=== PATIENT | male | born 1945 | race Caucasian/White ===

== ENCOUNTER 2019-01-23 16:59 | Emergency (ER) | payer MEDICARE, BC ==
[2019-01-23 17:22] VITALS: BP 116/97
--- NOTE | 2019-01-23 17:57 | ED ---
Skin Complaint - HPI Summary HPI Summary: pt was chopping wood earlier this am and when he checked himself this afternoon. he found a tick to his left thigh. he removed it. he states that there is already redness and he wanted to be checked out. he has a family member that has lyme disease and it has ruined his life. - History of Current Complaint Chief Complaint: UCSkin Stated Complaint: TICK BITE Hx Obtained From: Patient Onset/Duration: Started Hours Ago Onset Severity: Mild Pain Intensity: 0 - Allergy/Home Medications Allergies/Adverse Reactions: Allergies Allergy/AdvReac Type Severity Reaction Status Date / Time No Known Allergies Allergy Verified 01/23/19 17:22 Home Medications: Home Medications Alirocumab [Praluent Pen] 75 mg SQ WEEKLY 01/23/19 [History Confirmed 01/23/19] Aspirin 81 mg CHEW TAB* [Aspirin Low Dose TAB*] 81 mg PO DAILY 01/23/19 [ History Confirmed 01/23/19] Clopidogrel TAB* [Plavix TAB*] 75 mg PO DAILY 01/23/19 [History Confirmed ] Glucosamine Sulfate Dipot Chlr [Glucosamine Sulfate] 1,000 mg PO DAILY 01/23/19 [History Confirmed 01/23/19] Irbesartan/Hydrochlorothiazide [Irbesartan-Hctz 150-12.5 mg Tb] 1 each PO DAILY 01/23/19 [History Confirmed 01/23/19] Multivitamin [Multiple Vitamins] 1 each PO DAILY 01/23/19 [History Confirmed 02/05] Omeprazole 20 mg PO DAILY 01/23/19 [History Confirmed 01/23/19] Sertraline* [Zoloft*] 50 mg PO DAILY 01/23/19 [History Confirmed 01/23/19] PMH/Surg Hx/FS Hx/Imm Hx Previously Healthy: Yes Cardiovascular History: Reports: Hx Hypertension - Cancer History Cancer Type, Location and Year: prostate cancer - Surgical History Surgery Procedure, Year, and Place: prostate surgery. Ulna nerve repair. 3 stents Infectious Disease History: No Infectious Disease History: Denies: Traveled Outside the [place] in Last 30 Days - Social History Alcohol Use: Daily Substance Use Type: Reports: None Smoking Status (MU): Former Smoker Review of Systems Constitutional: Negative Eyes: Negative ENT: Negative Cardiovascular: Negative Respiratory: Negative Gastrointestinal: Negative Genitourinary: Negative Musculoskeletal: Negative Positive: Rash - left thigh Neurological: Negative Psychological: Normal All Other Systems Reviewed And Are Negative: No Physical Exam Triage Information Reviewed: Yes Vital Signs On Initial Exam: Initial Vitals Temp Pulse Resp BP Pulse Ox 99.1 F 78 16 116/97 98 01/23/19 17:17 01/23/19 17:17 01/23/19 17:17 01/23/19 17:17 01/23/19 17:17 Vital Signs Reviewed: Yes Appearance: Positive: Well-Appearing, No Pain Distress, Well-Nourished Skin: Positive: Warm, Other - redness to left middle thigh approx 4x3 cm Head/Face: Positive: Normal Head/Face Inspection Eyes: Positive: Normal, EOMI, [place] ENT: Positive: Hearing grossly normal Neck: Positive: Supple, Nontender Respiratory/Lung Sounds: Positive: Clear to Auscultation, Breath Sounds Present Cardiovascular: Positive: Normal, RRR Abdomen Description: Positive: Nontender, Soft Bowel Sounds: Positive: Present Musculoskeletal: Positive: Normal, Strength/ROM Intact Neurological: Positive: Normal, Sensory/Motor Intact, Alert, Oriented to Person Place, Time, CN Intact II-III Psychiatric: Positive: Normal AVPU Assessment: Alert Diagnostics - Vital Signs Vital Signs Temp Pulse Resp BP Pulse Ox 01/23/19 17:17 99.1 F 78 16 116/97 98 - Laboratory Lab Statement: Any lab studies that have been ordered have been reviewed, and results considered in the medical decision making process. Course/Dx - Course Course Of Treatment: pt states he was bit by a tick and he removed it. he brought the tick in. it appears that tick is completely intact. on evaluation , I do not see any evidence of the tick still imbeded in the skin. however, there is an area of erythema that has spread. will tx with abx, doxycycline. - Diagnoses Provider Diagnoses: Tick bite, Cellulitis Discharge - Sign-Out/Discharge Documenting (check all that apply): Patient Departure All imaging exams completed and their final reports reviewed: No Studies - Discharge Plan Condition: Stable Disposition: HOME Prescriptions: DOXYcycline CAP(*) [DOXYcycline 100MG CAP(*)] 100 mg PO BID #20 cap Patient Education Materials: Cellulitis (ED), Tick Bite (ED) Referrals: No Primary Care Phys,NOPCP [Primary Care Provider] - [facility] [Provider Group] Additional Instructions: please follow up with your primary care physician next week. return if worse or any new symptoms. I sent a prescription to the pharmacy for doxycyline. please take twice a day for 10 days. - Billing Disposition and Condition Condition: STABLE Disposition: Home
== END 2019-01-23 18:06 | disposition home or self-care (01) ==
LOC: UCCORT 16:59
DX: S70.362A Insect bite (nonvenomous), left thigh, initial encounter (principal); L03.116 Cellulitis of left lower limb; W57.XXXA Bitten or stung by nonvenomous insect and other nonvenomous arthropods, initial encounter; Y93.H9 Activity, other involving exterior property and land maintenance, building and construction; Y92.007 Garden or yard of unspecified non-institutional (private) residence as the place of occurrence of the external cause; I10 Essential (primary) hypertension; Z79.82 Long term (current) use of aspirin; Z87.891 Personal history of nicotine dependence
CPT/HCPCS: 99212; G0463

== ENCOUNTER 2023-07-26 07:30 | Observation (INO) ==
[~2023-07-26 07:30] MED LIST: Buffered Lidocaine 1% SYRIN 1 ml INTRADERM ONE; Lactated Ringers 1000 ml BAG 1,000 ML IV SCH; Naloxone 0.4 mg VIAL 0.4 mg/ml 1 ml VIAL IV PRN; Ondansetron 4 mg VIAL 2 MG/ML 2 ml VIAL IV PRN; fentaNYL 100 mcg/2 ml 50 MCG/ML VIAL IV PRN
[2023-07-26] MEDS ORDERED: Tranexamic Acid 1 GM/100ML BAG 2,000 MG/200 ML BAG IV ONE (12:47)
[2023-07-26 13:34] LABS: Rapid COVID-19 Molecular Undetected (Undetected)
[2023-07-26] MEDS ORDERED: fentaNYL 100 mcg/2 ml 50 MCG/ML VIAL ONE (13:54)
[2023-07-26] MEDS ORDERED: Dexamethasone IV 4 MG/ML VIAL 1 ml VIAL ONE (14:15)
[2023-07-26] MEDS ORDERED: Midazolam 2 mg/2 ml VIAL 1 mg/ml 2 ml VIAL (2 mg) ONE (14:15)
[2023-07-26] MEDS ORDERED: ROPIVACAINE 5 MG/ML 30 ML BTL (0.5%) ONE ×2 (14:16→17:06)
[2023-07-26] MEDS ORDERED: Ondansetron 4 mg VIAL 2 MG/ML 2 ml VIAL ONE (15:55)
[2023-07-26] MEDS ORDERED: Phenylephrine 40 mcg/mL 10mL (400mcg) SYRINGE ONE (16:00)
[2023-07-26] MEDS ORDERED: Morphine 2 MG/ML SYRINGE IV PRN (16:25)
[2023-07-26] MEDS ORDERED: Lactulose 30 ml UDC PO PRN (16:25)
[2023-07-26] MEDS ORDERED: Magnesium Hydroxide LIQ 30 ML UDC PO PRN (16:25)
[2023-07-26] MEDS ORDERED: Ondansetron ODT 4 mg TAB 4 MG TAB PO PRN (16:25)
[2023-07-26] MEDS ORDERED: Ondansetron 4 mg VIAL 2 MG/ML 2 ml VIAL IV PRN (16:25)
[2023-07-26] MEDS ORDERED: Phenylephrine IV 10 MG/ML 1 ml VIAL ONE (16:53)
[2023-07-26] MEDS ORDERED: Lactated Ringers 1000 ml BAG 1,000 ML IV SCH (17:00)
[2023-07-26] MEDS ORDERED: Propofol 10 MG/ML 20 ML BTL ONE ×2 (17:19→18:06)
[2023-07-26] MEDS: Magnesium Hydroxide LIQ 30 ML UDC PO SCH (21:32)
[2023-07-27] MEDS: ceFAZolin 1 GM ADVAN 1 GM in NS 0.9% 50 ML 50 ML IVPB SCH ×3 (00:27→15:46)
[2023-07-27 06:33] LABS: Platelet Count 168 10^3/uL (150-450)
[2023-07-27 07:00] LABS: Hematocrit 37.3 % (38-53); Hemoglobin 12.9 g/dL (13.2-16.3); Mean Platelet Volume 10.3 fL (7.5-11.2)
[2023-07-27 07:20] LABS: Calcium 8.2 mg/dL (8.6-10.3); Creatinine, Serum 0.88 mg/dL (0.67-1.17); Potassium 4.3 mmol/L (3.5-5.0); eGFR CKD-EPI 88.6 (>60)
[2023-07-27] MEDS: Magnesium Hydroxide LIQ 30 ML UDC PO SCH (08:09)
[2023-07-27] MEDS ORDERED: Influenza vaccine *QUAD* *2023-24* 0.5 ML SYRINGE IM ONE (09:00)
[2023-07-27] MEDS ORDERED: Vitamin THERAPEUTIC TAB PO SCH (09:00)
[2023-07-27] MEDS ORDERED: SPIRIVA Respimat (tiotropium) 2.5 mcg/inh Inhaler INH SCH (09:00)
[2023-07-27 14:04] VITALS: BP 130/75
== END 2023-07-27 16:18 | disposition home or self-care (01) ==
LOC: AA 11:43 → INTOOBSV 11:43 → SSU 20:12
PROVIDERS: ADMIT Orthopaedic Surgery Adult Reconstructive Orthopaedic Surgery; ATTEND Orthopaedic Surgery Adult Reconstructive Orthopaedic Surgery